=== PATIENT | female | born 2000 | race Two or more races ===

== ENCOUNTER 2022-07-19 22:42 | Emergency (ER) | payer OTHER ==
[~2022-07-19] VITALS: Ht 157.5 cm; Wt 77.6 kg
== END 2022-07-20 | disposition home or self-care (01) ==
LOC: EMR PED 22:42 → ER 22:42
DX: O46.92 Antepartum hemorrhage, unspecified, second trimester (principal); Z3A.14 14 weeks gestation of pregnancy; Z20.822 Contact with and (suspected) exposure to COVID-19

== ENCOUNTER 2023-01-13 01:12 | Inpatient (IN) | payer OTHER ==
[~2023-01-13] VITALS: Ht 165.1 cm; Wt 3.2 kg
[2023-01-13] MEDS ORDERED: PRENATAL TABLE1 EAC4 PO (01:41)
== END 2023-01-16 10:46 | disposition home or self-care (01) | DRG 788 ==
LOC: OBS/DEL 01:12 → O/R 04:51 → LDR 04:51 → O/R 10:07 → OB/GYN 14:31
PROVIDERS: ADMIT Obstetrics & Gynecology; ATTEND Obstetrics & Gynecology
PROC: 4A1HXCZ Monitoring of Products of Conception, Cardiac Rate, External Approach (ICD-10-PCS; 2023-01-13)
PROC: 10D00Z1 Extraction of Products of Conception, Low, Open Approach (ICD-10-PCS; principal; 2023-01-13 11:45)
DX: O33.8 Maternal care for disproportion of other origin (principal); Z3A.39 39 weeks gestation of pregnancy; Z37.0 Single live birth; Z20.822 Contact with and (suspected) exposure to COVID-19